=== PATIENT | female | born 1945 | race Caucasian/White ===

== ENCOUNTER 2016-12-15 13:42 | Emergency (ER) | payer MEDICARE, BC ==
[~2016-12-15] VITALS: Ht 162.6 cm; Wt 59.0 kg
[2016-12-15] MEDS ORDERED: CIPR250T27 PO (13:53)
[2016-12-15] MEDS ORDERED: LORazepam 0.5MG TABLET ONE (13:58)
[2016-12-15] MEDS ORDERED: LORazepam 0.5MG TABLET PO ONE (14:00)
[2016-12-15 14:43] LABS: ASPARTATE AMINO TRANSFERASE 18 U/L (15-37); BLOOD UREA NITROGEN 16 mg/dL (7-18)
[2016-12-15 14:55] LABS: IS PT STATUS REG ER OR PRE ER? YES
[2016-12-15 17:32] LABS: IS PT STATUS REG ER OR PRE ER? YES
[2016-12-15 17:56] VITALS: BP 114/53
== END 2016-12-15 18:00 | disposition home or self-care (01) ==
LOC: ED 14:48
DX: R05 Cough (principal); F41.1 Generalized anxiety disorder
CPT/HCPCS: 36415; 71010; 80053; 83880; 84443; 84484; 85025; 85379; 85610; 85730; 93005

== ENCOUNTER 2016-12-30 07:23 | Emergency (ER) | payer MEDICARE, BC ==
[~2016-12-30] VITALS: Ht 163.8 cm; Wt 58.9 kg
[~2016-12-30 07:23] MED LIST: CIPR250T27 PO
[2016-12-30 07:27] VITALS: BP 125/75
[2016-12-30] MEDS ORDERED: KETOROLAC 30 MG/1 ML ONE (08:39)
[2016-12-30] MEDS ORDERED: KETOROLAC 30 MG/1 ML IM ONE (09:00)
== END 2016-12-30 10:01 | disposition home or self-care (01) ==
LOC: ED 09:45
DX: M54.41 Lumbago with sciatica, right side (principal)
CPT/HCPCS: 72110; 96372; 99284; J1885

== ENCOUNTER 2018-08-23 10:59 | Emergency (ER) | payer MEDICARE, BC ==
[~2018-08-23] VITALS: Ht 162.6 cm; Wt 58.5 kg
[2018-08-23 11:02] VITALS: BP 117/62
--- NOTE | 2018-08-23 11:13 | NUR ---
PT PRESENT TO ED D/T LEFT EYE REDNESS AND PAIN. PT DENIES BLURRY VISION. PT ABLE TO TRACK RN WITHOUT ANY DIFFITCULTY. A&OX4.
[2018-08-23] MEDS ORDERED: ERYTHROMYCIN OPHTH 0.5%, 1GM LEFTEYE ONE (11:30)
--- NOTE | 2018-08-23 12:00 | NUR ---
PT BEING DISCHARGED HOME IN A STABLE CONDITION. DC INSTRUCTIONS WERE DISCUSSED WITH PT. PT VERBALIZED UNDERSTANDING. NO FURTHER QUESTIONS OR CONCERNS WERE EXPRESSED AT THAT TIME. REGISTRATION WALKING PT OUT. STEADY GAIT.
== END 2018-08-23 12:01 | disposition home or self-care (01) ==
LOC: ED 11:59
DX: H10.32 Unspecified acute conjunctivitis, left eye (principal); B97.89 Other viral agents as the cause of diseases classified elsewhere; Z90.710 Acquired absence of both cervix and uterus
CPT/HCPCS: 99283

== ENCOUNTER 2020-04-15 08:01 | Observation (INO) | payer MEDICARE, BC ==
[~2020-04-15] VITALS: Ht 165.1 cm; Wt 59.0 kg
--- NOTE | 2020-04-15 08:24 | NUR ---
Pt brought in by vicky from [place] living home with chief complaint of right back, & flank pain. Recently evaluated at [facility] for same complaint. records requested.
[2020-04-15] MEDS ORDERED: METHOCARBAMOL 750 MG TABLET PO ONE (08:30)
[2020-04-15 08:40] LABS: MICROSCOPIC INDICATED
[2020-04-15] MEDS ORDERED: METHOCARBAMOL 750 MG TABLET ONE (08:40)
--- NOTE | 2020-04-15 09:02 | NUR ---
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 wants to be called and updated [phone], has friend named Francie that can come pick her up.
--- NOTE | 2020-04-15 09:35 | NUR ---
Pt resting in bed, call light in reach. VSS.
--- NOTE | 2020-04-15 09:39 | NUR ---
PT to imaging
--- NOTE | 2020-04-15 10:00 | NUR ---
REPORT RECEIVED FROM TRINITY CHAO. PT IN IMAGING.
[2020-04-15 10:13] LABS: BASOPHILS # (AUTO) 0.02 x10^3/uL (0-0.1); BASOPHILS % (AUTO) 1 % (0-1); EOSINOPHILS # (AUTO) 0.05 x10^3/uL (0-0.4); EOSINOPHILS % (AUTO) 1 % (1-7); LYMPHOCYTES # (AUTO) 0.91 x10^3/uL (1-3.4); LYMPHOCYTES % (AUTO) 21 % (22-44); MD NO; MEAN CORPUSCULAR HEMOGLOBIN 29.5 pg (27.0-34.8); MEAN CORPUSCULAR HGB CONC 33.1 g/dL (32.4-35.8); MEAN PLATELET VOLUME 6.8 fL (7.4-10.4); MONOCYTES # (AUTO) 0.29 x10^3/uL (0.2-0.8); MONOCYTES % (AUTO) 7 % (2-9); NEUTROPHILS # (AUTO) 3.09 x10^3/uL (1.8-6.8); NEUTROPHILS % (AUTO) 71 % (42-75); PLATELET COUNT 229 x10^3/uL (130-400); RED BLOOD COUNT 4.93 x10^6/uL (3.82-5.3); RED CELL DISTRIBUTION WIDTH 13.6 % (9.6-15.2)
[2020-04-15 10:26] LABS: ALANINE AMINOTRANSFERASE 18 U/L (12-78); ALBUMIN 3.9 g/dL (3.4-5.0); ANION GAP 5 mmol/L (5-15); CALCIUM 9.2 mg/dL (8.5-10.1); CHLORIDE 115 mmol/L (98-107); CREATININE 0.95 mg/dL (0.55-1.02)
[2020-04-15 10:28] LABS: ALKALINE PHOSPHATASE 48 U/L (45-117); BILIRUBIN,TOTAL 0.9 mg/dL (0.2-1.0); TOTAL PROTEIN 6.8 g/dL (6.4-8.2)
--- NOTE | 2020-04-15 11:14 | NUR ---
REPORT GIVEN TO DMITRY CHAO, PT OK TO TRANSFER TO FLOOR. PT AWARE OF POC. PT UP TO VOID WITH TECH, STEADY GAIT. PT STATES BACK PAIN DECREASED, MEDICATION EFFECTIVE. CONT TO MONITOR.
--- NOTE | 2020-04-15 11:33 | NUR ---
PT TRANSFERED TO FLOOR WITH TECH, HAS ALL OWN BELONGINGS UPON TRANSFER.
[2020-04-15 11:45] VITALS: BP 113/58
[2020-04-15] MEDS ORDERED: ONDANSETRON 2MG/ML, 2ML IVPush PRN (13:30)
[2020-04-15] MEDS ORDERED: OXYcodone IR 5MG TABLET PO PRN (13:30)
[2020-04-15] MEDS ORDERED: ENALAPRILAT 1.25 MG/ML, 2ML IVPush PRN (13:30)
[2020-04-15] MEDS ORDERED: KETOROLAC 30 MG/1 ML IV PRN (13:30)
[2020-04-15] MEDS ORDERED: LIDODERM 5% PATCH TD PRN (13:30)
[2020-04-15] MEDS: ACETAMINOPHEN 325 MG TABLET PO SCH ×2 (13:46→23:06)
[2020-04-15 13:47] VITALS: BP 116/59
[2020-04-15] MEDS: GABAPENTIN 100 MG CAPSULE PO SCH ×2 (15:05→23:07)
[2020-04-15] MEDS: CYCLOBENZAPRINE 10 MG TABLET PO SCH ×2 (15:05→23:07)
[2020-04-15 20:09] VITALS: BP 117/79
[2020-04-16 03:00] VITALS: BP 102/71
[2020-04-16 05:32] LABS: BASOPHILS # (AUTO) 0.03 x10^3/uL (0-0.1); BASOPHILS % (AUTO) 1 % (0-1); EOSINOPHILS # (AUTO) 0.13 x10^3/uL (0-0.4); EOSINOPHILS % (AUTO) 4 % (1-7); LYMPHOCYTES # (AUTO) 1.08 x10^3/uL (1-3.4); LYMPHOCYTES % (AUTO) 30 % (22-44); MD NO; MEAN CORPUSCULAR HEMOGLOBIN 29.3 pg (27.0-34.8); MEAN CORPUSCULAR HGB CONC 32.9 g/dL (32.4-35.8); MONOCYTES # (AUTO) 0.29 x10^3/uL (0.2-0.8); MONOCYTES % (AUTO) 8 % (2-9); NEUTROPHILS # (AUTO) 2.14 x10^3/uL (1.8-6.8); NEUTROPHILS % (AUTO) 58 % (42-75); PLATELET COUNT 198 x10^3/uL (130-400); RED BLOOD COUNT 4.56 x10^6/uL (3.82-5.3); RED CELL DISTRIBUTION WIDTH 13.2 % (9.6-15.2)
[2020-04-16 05:36] LABS: ANION GAP 6 mmol/L (5-15); CALCIUM 9.3 mg/dL (8.5-10.1); CHLORIDE 115 mmol/L (98-107)
[2020-04-16] MEDS: ACETAMINOPHEN 325 MG TABLET PO SCH ×2 (06:12→14:19)
[2020-04-16] MEDS: GABAPENTIN 100 MG CAPSULE PO SCH (06:12)
[2020-04-16 07:33] VITALS: BP 105/66
[2020-04-16] MEDS ORDERED: SENNA/DOCUSATE TABLET PO SCH (09:00)
[2020-04-16] MEDS: CYCLOBENZAPRINE 10 MG TABLET PO SCH ×2 (09:35→14:20)
[2020-04-16] MEDS: GABAPENTIN 300 MG CAPSULE PO SCH ×2 (09:35→14:19)
[2020-04-16] MEDS ORDERED: ACET325T26 PO (11:55)
[2020-04-16] MEDS ORDERED: CYCL-259 PO (11:55)
[2020-04-16] MEDS ORDERED: LIDO700A20 TD (11:55)
[2020-04-16 13:04] VITALS: BP 110/71
== END 2020-04-16 17:45 | disposition home or self-care (01) ==
LOC: ED 08:55 → INTOOBSV 11:25 → EDIP 11:25 → 4NE 11:37
PROVIDERS: ADMIT Internal Medicine; ATTEND Hospitalist
DX: M51.37 Other intervertebral disc degeneration, lumbosacral region (principal); Z20.828 Contact with and (suspected) exposure to other viral communicable diseases; S39.012A Strain of muscle, fascia and tendon of lower back, initial encounter; F03.90 Unspecified dementia, unspecified severity, without behavioral disturbance, psychotic disturbance, mood disturbance, and anxiety; Z90.710 Acquired absence of both cervix and uterus; Z79.899 Other long term (current) drug therapy; X50.0XXA Overexertion from strenuous movement or load, initial encounter; Y93.89 Activity, other specified; Y92.89 Other specified places as the place of occurrence of the external cause
CPT/HCPCS: 36415; 72131; 74176; 80048; 80053; 81001; 82306; 85025; 87086; 87635; 93005; 96374; 97161; 99285; G0378; J1885